=== PATIENT | female | born 1985 | race Caucasian/White ===

== ENCOUNTER 2018-05-04 20:48 | Emergency (ER) | payer SELFPAY ==
[~2018-05-04] VITALS: Ht 157.5 cm; Wt 84.1 kg
[2018-05-04 21:01] VITALS: Ht 157.5 cm; Wt 84.1 kg
[2018-05-04] MEDS ORDERED: MINIPRESS 5 MG C5 MG (21:02)
[2018-05-04] MEDS ORDERED: TEGRETOL XR100 MG PO (21:02)
[2018-05-04] MEDS ORDERED: SEROQUEL XR400 M1 PO (21:02)
[2018-05-04] MEDS ORDERED: LAMICTAL XR200 MG PO (21:02)
[2018-05-04] MEDS ORDERED: ALBUTEROL2.5 MG/3 M (21:03)
[2018-05-04] MEDS ORDERED: VENTOLIN HFA18 GM (21:03)
[2018-05-04] MEDS ORDERED: SINGULAIR10 MG PO (21:03)
[2018-05-04] MEDS ORDERED: TOPROL XL50 MG (21:03)
[2018-05-04] MEDS ORDERED: PHENERGAN DM SYR5 ML PO (22:17)
[2018-05-04] MEDS ORDERED: MEDROL DOSE PACK4 MG PO (22:17)
[2018-05-04 23:15] VITALS: BP 111/50
== END 2018-05-04 23:08 | disposition home or self-care (01) ==
LOC: D.ER 20:48
DX: J40 Bronchitis, not specified as acute or chronic (principal); J06.9 Acute upper respiratory infection, unspecified; R09.89 Other specified symptoms and signs involving the circulatory and respiratory systems; F17.200 Nicotine dependence, unspecified, uncomplicated

== ENCOUNTER 2019-08-24 22:29 | Emergency (ER) | payer SELFPAY ==
[~2019-08-24] VITALS: Ht 157.5 cm; Wt 100.0 kg
[~2019-08-24 22:29] MED LIST: ALBUTEROL2.5 MG/3 M; LAMICTAL XR200 MG PO; MEDROL DOSE PACK4 MG PO; MINIPRESS 5 MG C5 MG; PHENERGAN DM SYR5 ML PO; SEROQUEL XR400 M1 PO; SINGULAIR10 MG PO; TEGRETOL XR100 MG PO; TOPROL XL50 MG; VENTOLIN HFA18 GM
[2019-08-24 22:50] VITALS: BP 115/67; Ht 157.5 cm; Wt 100.0 kg
[2019-08-24] MEDS ORDERED: DURAFLU 325-201 EACH PO (23:52)
[2019-08-24] MEDS ORDERED: TAMIFLU75 MG PO (23:52)
== END 2019-08-25 00:25 | disposition home or self-care (01) ==
LOC: D.ER 22:29
DX: J10.1 Influenza due to other identified influenza virus with other respiratory manifestations (principal); Z72.0 Tobacco use; J45.909 Unspecified asthma, uncomplicated

== ENCOUNTER 2020-10-06 06:30 | Day surgery (SDC) | payer BC ==
[2020-10-03 11:23] LABS: BASOPHILS 0 % (0-2); EOSINOPHILS 0 % (0-7); HEMATOCRIT 39.7 % (36.0-48.0); HEMOGLOBIN 13.4 g/dL (12-16); IMMATURE GRANULOCYTES 0.4 % (0-5); LYMPHOCYTE ABS# 2.04 10x3/uL (1.18-3.74); LYMPHOCYTES 38.1 % (15-50); MCH 31.2 pg (26.0-34.0); MCHC 33.8 g/dL (31.0-37.0); MCV 92.3 fL (80.0-100.0); MEAN PLATELET VOLUME 9.6 fL (7.4-10.4); MONOCYTES 5.4 % (2-11); NEUTROPHILS 56.1 % (40-80); PLATELET COUNT 286 10x3/uL (130-400); RDW 12.8 % (11.5-14.5); WBC 5.4 10x3/uL (4.8-10.8)
[2020-10-03 11:39] LABS: ANION GAP 11.1 mmol/L (8-16); CALCIUM 8.6 mg/dL (8.5-10.1); CARBON DIOXIDE 25.6 mmol/L (21.0-32.0); CREATININE - SERUM 1.1 mg/dL (0.6-1.3); POTASSIUM - SERUM 3.7 mmol/L (3.5-5.1)
[~2020-10-06] VITALS: Ht 157.5 cm; Wt 98.9 kg
[~2020-10-06 06:30] MED LIST changes: +CELEXA20 MG; +DEPAKOTE500 MG; +DURAFLU 325-201 EACH PO; +KEFLEX500 MG PO; +TAMIFLU75 MG PO; +VOLTAREN75 MG PO
[2020-10-06 07:53] VITALS: BP 98/61; Ht 157.5 cm; Wt 98.9 kg
--- NOTE | 2020-10-06 12:26 | NUR ---
OPA IN AIRWAY ON ADMIT
--- NOTE | 2020-10-06 12:32 | NUR ---
SCOPE PATCH BEHIND RT EAR ON ADMIT
--- NOTE | 2020-10-06 14:39 | NUR ---
1430 PT PAIN LEVEL IS A 6 OUT OF 10 AND REQUESTING PAIN MEDICATION.
--- NOTE | 2020-10-06 16:32 | NUR ---
1535 PT STATES HER PAIN LEVEL IS A 2 OUT OF 10 AFTER TAKING PERCOCET EARLIER. IV DC'D. CATHETER TIP INTACT. NO BLEEDING AT SITE. COBAN DRESSING APPLIED. 1550 WITH ASSISTANCE PT IS DRESSED AND READY TO GO HOME. DISCHARGE INSTRUCTIONS REVIEWED WITH PT WHO VOICES UNDERSTANDING OF THESE INSTRUCTIONS.
--- NOTE | 2020-10-12 12:54 | OP ---
PATIENT NAME: KRIS ROBERSON MEDICAL RECORD: [id number] :81 LOCATION:D.OPS ADMISSION DATE: SURGEON: FUAD ARCE DO DATE OF OPERATION: 10/06/2020 PREOPERATIVE DIAGNOSES: Pelvic pain, left ovarian cyst. POSTOPERATIVE DIAGNOSES: Pelvic pain, left ovarian cyst with dense adhesions and bowel adhesions to ovary. PRIMARY SURGEON: Fuad Arce DO. CNC MANAGER SURGEON: Dr. Dumont. ANESTHESIA: General endotracheal tube intubation. PROCEDURE: Laparoscopic left partial oophorectomy. FINDINGS: Adhesions to anterior abdominal wall. Ovary densely adhered to bowel. SPECIMEN: Portion of the left ovary and fallopian tube. BLOOD LOSS: 50 mL. INTRAVENOUS FLUIDS: 1300 mL. URINE OUTPUT: 300 mL of clear yellow urine. INFECTION PROPHYLAXIS: 2 g Ancef. COMPLICATIONS: None. Risks and benefits were reviewed with the patient in the office with extenseive counseling. The patient expressed understanding and desired to proceed with surgery. DESCRIPTION OF PROCEDURE: The patient was taken to the operating room where general anesthesia was administered and found to be adequate. She was prepped and draped in normal sterile fashion in supine position. Marcaine was injected into subumbilical area and at all port sites prior to all trocar placement. Incision made under umbilicus and a 5-mm port placed with direct entry. Initial inflation of gas cause some to go into subcutatneous layer, removed and replaced and air removed as much as possible. Pneumoperitoneum created via CO2 gas. Adhesions to anterior abdominal wall were noted. So 2 other ports were placed in the left lower quadrant and right lower quadrant, 5 mm in the right lower quadrant, 10 mm in the left lower quadrant. Adhesions were taken down with harmonic with good hemostasis. No bowel noted in the adhesed omental tissue. Attention was then turned to the left side. Left ovary was found with dense adhesions to bowel. Fimbriae are noted to be free. So removed with harmonic with combination of sharp and blunt dissection and OPERATIVE REPORT [id number] KRIS ROBERSON coagulation with good hemostasis. Cyst drained and portion of ovary that was not attached to bowel removed with harmonic, attention to avoid bowel injury which would require invasive surgery Ovary removed via Endobag. Endoclip placed on blood supply to the ovary to also help with hemostasis. Hemostasis was adequate. Abdomen was thoroughly lavaged and no active bleeding noted. Penny was placed and hemostasis was again adequate. Ports then removed. Incisions closed with 3-0 Monocryl and Dermabond. The patient taken to the recovery room in stable condition. TRANSINT:[id number] Voice Confirmation ID: [id number] DOCUMENT ID: [id number] FUAD ARCE DO at 1254 CC: [id number] DICTATION DATE: 10/12/20 0654 BUSINESS SOLUTION ANALYST: 10/12/20 1031 [facility] 10/06/20 [id number] [place] [address]
== END 2020-10-06 15:50 | disposition home or self-care (01) ==
LOC: D.OPS 06:30
PROVIDERS: Anesthesiology; ATTEND Obstetrics & Gynecology
DX: R10.2 Pelvic and perineal pain (principal); N83.202 Unspecified ovarian cyst, left side; E89.41 Symptomatic postprocedural ovarian failure

== ENCOUNTER 2020-10-25 09:59 | Emergency (ER) | payer BC ==
[~2020-10-25] VITALS: Ht 157.5 cm; Wt 97.7 kg
[2020-10-25 10:03] VITALS: Ht 157.5 cm; Wt 97.7 kg
[2020-10-25] MEDS ORDERED: BACTRIM DS TAB1 EAC1 PO (10:07)
[2020-10-25 11:35] LABS: ANION GAP 13.4 mmol/L (8-16); CALCIUM 8.4 mg/dL (8.5-10.1); CARBON DIOXIDE 24.2 mmol/L (21.0-32.0); CREATININE - SERUM 1.2 mg/dL (0.6-1.3); POTASSIUM - SERUM 4.6 mmol/L (3.5-5.1)
[2020-10-25 11:40] LABS: BASOPHILS 0 % (0-2); EOSINOPHILS 0 % (0-7); HEMATOCRIT 36.6 % (36.0-48.0); HEMOGLOBIN 12.1 g/dL (12-16); IMMATURE GRANULOCYTES 0.8 % (0-5); LYMPHOCYTE ABS# 1.82 10x3/uL (1.18-3.74); LYMPHOCYTES 34.1 % (15-50); MCH 31.1 pg (26.0-34.0); MCHC 33.1 g/dL (31.0-37.0); MCV 94.1 fL (80.0-100.0); MEAN PLATELET VOLUME 10.1 fL (7.4-10.4); MONOCYTES 7.5 % (2-11); NEUTROPHIL ABS# 3.07 10x3/uL (1.56-6.13); NEUTROPHILS 57.6 % (40-80); PLATELET COUNT 261 10x3/uL (130-400); RBC 3.89 10x6/uL (4.00-5.40); RDW 13.5 % (11.5-14.5); WBC 5.3 10x3/uL (4.8-10.8)
[2020-10-25 11:41] LABS: ALBUMIN 3.1 g/dL (3.4-5.0); BILIRUBIN - TOTAL 0.09 mg/dL (0.2-1.3); PROTEIN - SERUM 6.2 g/dL (6.4-8.2)
[2020-10-25 12:28] VITALS: BP 114/50
== END 2020-10-25 12:28 | disposition home or self-care (01) ==
LOC: D.ER 09:59
PROVIDERS: Family Medicine
DX: R10.9 Unspecified abdominal pain (principal)

== ENCOUNTER 2020-11-15 14:07 | Inpatient (IN) | payer BC ==
[~2020-11-15] VITALS: Ht 157.5 cm; Wt 101.6 kg
[~2020-11-15 14:07] MED LIST changes: +BACTRIM DS TAB1 EAC1 PO; -CELEXA20 MG; +CELEXA20 MG PO
--- NOTE | 2020-11-15 14:20 | NUR ---
RECEIVED PT VIA WHEELCHAIR FROM ADMISSIONS DEPT TO ROOM 1273. PT TO ROOM. INSTRUCTED TO GOWN AND COLLECT URINE SPECIMEN.
--- NOTE | 2020-11-15 14:30 | NUR ---
DR GARCIA'S OFFICE NURSE NOTIFIED OF ORDERED PHYSICIAN CONSULT.
[2020-11-15 14:53] VITALS: BP 110/56; BMI 41.0
--- NOTE | 2020-11-15 15:09 | NUR ---
LAB HERE TO OBTAIN BLOOD CULTURES X 2.
--- NOTE | 2020-11-15 15:10 | NUR ---
WILBER WITH DR GARCIA'S OFFICE VISITS WITH PT.
[2020-11-15] MEDS ORDERED: MOBIC7.5 MG PO (15:17)
[2020-11-15] MEDS ORDERED: CEPHALEXIN500 M1 PO (15:19)
[2020-11-15] MEDS ORDERED: TRELEGY ELLIPT1 EACH INH (15:21)
[2020-11-15 15:36] LABS: ANION GAP 14.5 mmol/L (8-16); CALCIUM 8.9 mg/dL (8.5-10.1); CARBON DIOXIDE 24.7 mmol/L (21.0-32.0); POTASSIUM - SERUM 4.2 mmol/L (3.5-5.1)
[2020-11-15 15:37] LABS: BASOPHILS 0 % (0-2); EOSINOPHILS 0.1 % (0-7); HEMATOCRIT 39.2 % (36.0-48.0); HEMOGLOBIN 12.9 g/dL (12-16); IMMATURE GRANULOCYTES 0.1 % (0-5); LYMPHOCYTE ABS# 2.56 10x3/uL (1.18-3.74); LYMPHOCYTES 29.4 % (15-50); MCH 31.9 pg (26.0-34.0); MCHC 32.9 g/dL (31.0-37.0); MEAN PLATELET VOLUME 10.9 fL (7.4-10.4); MONOCYTES 5.8 % (2-11); NEUTROPHIL ABS# 5.63 10x3/uL (1.56-6.13); NEUTROPHILS 64.6 % (40-80); PLATELET COUNT 289 10x3/uL (130-400); RBC 4.04 10x6/uL (4.00-5.40); RDW 12.8 % (11.5-14.5); WBC 8.7 10x3/uL (4.8-10.8)
[2020-11-15 15:42] LABS: ALBUMIN 3.4 g/dL (3.4-5.0); BILIRUBIN - TOTAL 0.29 mg/dL (0.2-1.3); PROTEIN - SERUM 6.9 g/dL (6.4-8.2)
--- NOTE | 2020-11-15 16:01 | NUR ---
CT STAFF HERE. PT TO CT DEPT VIA WHEELCHAIR PER CT STAFF.
--- NOTE | 2020-11-15 16:15 | NUR ---
PT BACK TO ROOM VIA WHEELCHAIR PER CT STAFF.
--- NOTE | 2020-11-15 17:05 | NUR ---
PT LYING IN SEMI-RAINES'S POSITION IN BED. STATES PAIN "2" ON 0-10 PAIN SCALE. STATES MEDICATION HELPING TO RELIEVE PAIN.
--- NOTE | 2020-11-15 17:20 | NUR ---
SCDS ON BLE. PUMP ON. PT INSTRUCTED ON PURPOSE. PT ALSO INSTRUCTED ON INCENTIVE SPIROMETER. VERBLAIZES UNDERSTANDING.
--- NOTE | 2020-11-15 17:30 | NUR ---
CT RESULTS CALLED TO DR MAHAN. STATES WILL CONTACT DR GARCIA'S CUTTER MACHINE FOR SUGGESTIONS/ORDERS.
--- NOTE | 2020-11-15 17:57 | NUR ---
DR MAHAN CALLS. STATES PT MAY EAT AND DR GARCIA ANP WILL SEE PT IN AM.
[2020-11-15 19:10] VITALS: BP 109/56
--- NOTE | 2020-11-15 19:30 | NUR ---
PT A,A,OX4. VSS. SEE FULL ASSESSMENT PER FLOWSHEET. PIV IN RT HAND INFUSING LR AT 125 ML/HR. INCISION SITE ON LEFT SIDE MIDDLE ABDOMEN. BANDAGED REMOVED WITH HALF DOLLAR SIZE LIGHT RED BLOOD AND PUS NOTED. NEW STERILE NON ADHESIVE BANDAGE APPLIED TO INCISION SITE. REDNESS NOTED ON AND AROUND INCISION SITE WRAPPING AROUND SIDE AND MIDDLE OF ABDOMEN. PT RATES PAIN 6/1O AT INCISION SITE. SRUP X2, CALL LIGHT WITHIN REACH.
--- NOTE | 2020-11-15 19:54 | NUR ---
TYLENOL ADMINISTERED PER EMAR, ICE WATER PROVIDED.
--- NOTE | 2020-11-15 20:26 | NUR ---
PHARMACY CALLED LABOR UNIT TO VERIFY DOSE OF SEROQUEL. DR MAHAN AND PT BOTH VERIFY THAT SHE TAKES 800MG PO QHS. INFORMATION RELAYED BACK TO PHARMACY.
--- NOTE | 2020-11-15 22:27 | NUR ---
MEDICATION ADMINISTERED PER EMAR. COKE AND CRACKERS PROVIDED. PT DENIES OTHER NEEDS AT THIS TIME.
[2020-11-16 00:19] VITALS: BP 93/54
--- NOTE | 2020-11-16 00:30 | NUR ---
MEDICATION ADMINISTERED PER EMAR. VSS. PT RESTING, DENIES NEEDS AT THIS TIME.
--- NOTE | 2020-11-16 01:39 | NUR ---
NEW BAG BENITO BUSTILLO. PT DENIES NEEDS AT THIS TIME.
--- NOTE | 2020-11-16 03:56 | NUR ---
PT RESTING WITH EYES CLOSED, BREATHING NON LABORED.
--- NOTE | 2020-11-16 06:21 | NUR ---
ANTIBIOTICS INFUSING PER MD ORDERS, SEE EMAR
--- NOTE | 2020-11-16 06:38 | NUR ---
PATIENT UP TO BATHROOM, VOIDED WITHOUT DIFFICULTY AND BACK TO BED. PAIN MEDICATION ADMINISTERED PER MD ORDERS, SEE EMAR.
--- NOTE | 2020-11-16 07:21 | NUR ---
BEDSIDE REPORT GIVEN TO ONCOMING SHIFT.
[2020-11-16 07:52] VITALS: BP 96/53
--- NOTE | 2020-11-16 07:52 | NUR ---
RECEIVED PT IN SEMI-RAINES'S POSITION IN BED. PT WAKES UPON ENTERING ROOM. VSS. HRRR WITHOUT AUDIBLE MURMUR. BBS CLEAR. BS X 4. ABDOMEN SOFT/NON-DISTENDED. DRESSING TO LEFT SIDE OF ABDOMEN WITHOUT DRAINAGE NOTED. REDNESS NOTED AROUND DRESSING. NEG HOMANS' SIGN. PPP. NO EDEMA NOTED TO BLE. PIV TO RIGHT HAND. PIV OF LR AT 125 ML/HR. VANCOMYCIN CURRENTLY INFUSING. SITE CLEAR. SCDS NOTED OFF AT THIS TIME. PT ENCOURAGED TO KEEP SCD'S ON. PT STATES C/O ABDOMINAL PAIN OF "4" ON 0-10 PAIN SCALE. STATES RECEIVED PAIN MED THIS AM AND IS HELPING WITH PAIN. PT DENIES NEEDS OR C/O. SR UP X 2. CALL LIGHT IN REACH.
[2020-11-16 08:01] LABS: CREATININE - SERUM 0.9 mg/dL (0.6-1.3)
--- NOTE | 2020-11-16 08:52 | NUR ---
DR MAHAN CALLS. PT STATUS UPDATE GIVEN. STATES WILL CALL SURGERY MANAGER PRICING AND PUT IN ORDERS.
[2020-11-16 09:20] LABS: ALBUMIN 2.7 g/dL (3.4-5.0); ALKALINE PHOSPHATASE 65 U/L (30-120); ALT (SGPT) 11 U/L (10-68); BILIRUBIN - TOTAL 0.28 mg/dL (0.2-1.3); CALC OSMOLALITY 280 mosm/kg (275-300); CALCIUM 7.9 mg/dL (8.5-10.1); CARBON DIOXIDE 24.6 mmol/L (21.0-32.0); CHLORIDE - SERUM 106 mmol/L (98-107); GLUCOSE 76 mg/dL (74-106); PROTEIN - SERUM 5.5 g/dL (6.4-8.2); SODIUM 141 mmol/L (136-145); UREA NITROGEN 16 mg/dL (7-18)
[2020-11-16 09:41] LABS: BASOPHILS 0 % (0-2); EOSINOPHILS 0.3 % (0-7); HEMOGLOBIN 11.4 g/dL (12-16); IMMATURE GRANULOCYTES 0.1 % (0-5); LYMPHOCYTE ABS# 2.31 10x3/uL (1.18-3.74); MCH 31.6 pg (26.0-34.0); MCHC 32.6 g/dL (31.0-37.0); MEAN PLATELET VOLUME 10.9 fL (7.4-10.4); MONOCYTES 5.8 % (2-11); NEUTROPHIL ABS# 4.47 10x3/uL (1.56-6.13); NEUTROPHILS 61.8 % (40-80); PLATELET COUNT 250 10x3/uL (130-400); RBC 3.61 10x6/uL (4.00-5.40); RDW 13.2 % (11.5-14.5); WBC 7.2 10x3/uL (4.8-10.8)
--- NOTE | 2020-11-16 09:55 | NUR ---
DR MAHAN ON UNIT. VISITS WITH PT AND CASE MANAGEMENT-JADE NICKERSON RN.
--- NOTE | 2020-11-16 09:59 | NUR ---
JADE NICKERSON RN, CASE MANAGEMENT VISITS WITH PT.
--- NOTE | 2020-11-16 11:11 | NUR ---
DR MAHAN CALLS. STATES SURGERY FLAG DECORATOR ORDERED PELVIC CT SCAN FOR TODAY. ORDER RECEIVED TO SWITCH PIV FLUID TO D5LR AT 125 ML/HR X 1 1000 ML BAG.
[2020-11-16 12:17] VITALS: BP 102/50
--- NOTE | 2020-11-16 12:17 | NUR ---
VSS. PT LYING SUPINE IN BED. PT DENIES C/O. ASKS ABOUT TIME ON CT SCAN. WILL CALL DEPT. CT/MEDICAL IMAGING DEPT CALLED. WILL HAVE CT STAFF RETURN CALL WITH ESTIMATED TIME.
--- NOTE | 2020-11-16 12:40 | NUR ---
CT STAFF TO ROOM. PT TRANSFERED VIA WHEELCHAIR TO CT DEPT PER CT STAFF.
--- NOTE | 2020-11-16 14:09 | NUR ---
DR MAHAN NOTIFIED OF CT OF PELVIS REPORT. STATES HAS VIEWED AND ATTEMPTED TO CONTACT SURGERY ANP AND AWAITING RETURN CALL.
--- NOTE | 2020-11-16 14:44 | MORECARE ---
CASE MANAGEMENT DISCHARGE SUMMARY PATIENT: KRIS ROBERSON UNIT: [id number] ADM DATE: 11/15/20 AGE: 35 : 83 SEX: F [facility] AUTHOR: MURALI,DOC PHYSICIAN: REFERRING PHYSICIAN: FUAD MAHAN DO DATE OF SERVICE: 11/16/20 Case Management Discharge Planning Summary DCP REVIEW SUMMARY ANTICIPATED D/C DATE: EXPECTED LOS : CASE STATUS: DCP Initiated INITIAL REVIEW: 11/16/2020 INITIAL REVIEWER: Avelina Betancourt FINAL DISCHARGE DISPOSITION: : FINAL REVIEWER: FINAL REVIEW DATE: DCP Focus Questions & Answers QUESTION: ANSWER : PATIENT: KRIS ROBERSON ENCOUNTER: [id number] MEDICAL RECORD#: [id number] ADMISSION DATE: 11/15/2020 DISCHARGE DATE: ATTENDING MD: MICHAELLE: AGE: 35 MARITAL STATUS: S DC PLAN ID: [id number] FACILITY: [facility] PRINTED ON: 11/16/20 14:44 CT All edits/amendments must be made on the electronic document DICTATION DATE: 11/16/201443 IN STORE MARKETING REPRESENTATIVE: ORQUIDEA 11/16/20 144 RPT#: [id number] DC DATE: STATUS: ADM IN [facility] [address] [place] [address] END OF REPORT
--- NOTE | 2020-11-16 14:57 | MORECARE ---
CASE MANAGEMENT DISCHARGE SUMMARY PATIENT: KRIS ROBERSON UNIT: [id number] ADM DATE: 11/15/20 AGE: 35 : 83 SEX: F ROOM/BED: D.1273 AUTHOR: PERLA CARRION PHYSICIAN: REFERRING PHYSICIAN: FUAD MAHAN DO DATE OF SERVICE: 11/16/20 Case Management Discharge Planning Summary DCP REVIEW SUMMARY ANTICIPATED D/C DATE: EXPECTED LOS : CASE STATUS: DCP Initiated INITIAL REVIEW: 11/16/2020 INITIAL REVIEWER: Avelina Betancourt FINAL DISCHARGE DISPOSITION: : FINAL REVIEWER: FINAL REVIEW DATE: DCP Focus Questions & Answers DCP Evaluation QUESTION: ANSWER Patient and/or caregiver agree upon recommended discharge plan? : Yes Patient's current cognitive status: : *Oriented to person, place, situation, time and present Patient's ability to cope with chronic illness : d. No chronic illness Patient gives permission to discuss discharge plans with: (name, relationship and number) : Kris Roberson - life partner - [phone] Does the patient have the ability to pay for or attain post discharge needs / services? : Yes Functional screen assessment: : Basic needs can adequately be met by self Physical Status: : Independent with ADL's Equipment needed for post hospitalization: : Other Is there a likelihood that the patient will require additional services to return to the preadmission environment? : No Living Arrangements: : Home with Spouse/Significant Other Other Equipment comments: : Unknown at this time Results of this evaluation have been discussed with: : Significant other Results of this evaluation have been discussed with: : Patient Patient with capacity for self-care or can be cared for in same environment as prior to hospitalization? : Yes Baseline cognitive status: : *Oriented to person, place, situation, time and present Medication Management: : Patient states can afford medications Planned post hospital services available for patient? : Yes Does Patient have transportation to get home and to follow-up medical appointments when discharged from the hospital? : Yes Would patient like to participate in any Care Coordination programs (if applicable): : Not applicable Equipment in use: : None Abuse/Neglect: : None Resources / Services in place: : None DCP Re-evaluation QUESTION: ANSWER Would patient like to participate in any Care Coordination programs (if applicable): : Not applicable PATIENT: KRIS ROBERSON ENCOUNTER: [id number] MEDICAL RECORD#: [id number] ADMISSION DATE: 11/15/2020 DISCHARGE DATE: ATTENDING MD: MICHAELLE: AGE: 35 MARITAL STATUS: S DC PLAN ID: [id number] FACILITY: [facility] PRINTED ON: 11/16/20 14:57 CT All edits/amendments must be made on the electronic document DICTATION DATE: 11/16/201456 AUTOMOBILE LEASING SUPERVISOR: ORQUIDEA 11/16/201456 RPT#: [id number] DC DATE: STATUS: ADM IN [facility] [address] [place] [address] END OF REPORT
--- NOTE | 2020-11-16 15:27 | NUR ---
PT SITTING UP IN BED. TALKING ON PHONE. ASKING ABOUT POC. WILL NOTIFY DR MAHAN OF PT REQUEST.
--- NOTE | 2020-11-16 15:33 | MORECARE ---
CASE MANAGEMENT DISCHARGE SUMMARY PATIENT: KRIS ROBERSON UNIT: [id number] ADM DATE: 11/15/20 AGE: 35 : 83 SEX: F ROOM/BED: D.1273 AUTHOR: MURALI,DOC PHYSICIAN: REFERRING PHYSICIAN: FUAD MAHAN DO DATE OF SERVICE: 11/16/20 Case Management Discharge Planning Summary COMMENTS ENTERED DATE: 11/16/20 14:48 CT COMMENT TYPE: Discharge Planning REVIEWER: Avelina Betancourt DC PLAN: Home with Life partner ANTICIPATED DC NEEDS: May need home health if extensive dressing change or wound vac CM met with patient to complete initial dc planning assessment. CM educated patient on the CM role and verbal consent given by patient to complete assessment. CM verified patient's address, phone number, and emergency contact phone numbers. Patient lives at home with her life partner, Kris Roberson (same first and last name as patient). At discharge patient plans to return and feels this is a safe discharge. CM discussed availability of home health, rehab services, and medical equipment. Patient denied known discharge needs at this time. Transportation provider at discharge will be her life partner. I did explain to them both that if she has surgery and she has an extensive dressing change or drains or a wound vac that she may need home health. Her partner states at this time she is doing dressing changes and can continue this if possible. I gave them a list of the home health services in the area and she will review. She asks that I return after she has procedure to know if she has any needs. Her PCP is Mary Oquendo at [facility]. CM will continue to follow and will assist as needed with dc plans/needs. DCP REVIEW SUMMARY ANTICIPATED D/C DATE: EXPECTED LOS : CASE STATUS: DCP Initiated INITIAL REVIEW: 11/16/2020 INITIAL REVIEWER: Avelina Betancourt FINAL DISCHARGE DISPOSITION: : FINAL REVIEWER: FINAL REVIEW DATE: DCP Focus Questions & Answers DCP Evaluation QUESTION: ANSWER Patient and/or caregiver agree upon recommended discharge plan? : Yes Patient's current cognitive status: : *Oriented to person, place, situation, time and present Patient's ability to cope with chronic illness : d. No chronic illness Patient gives permission to discuss discharge plans with: (name, relationship and number) : Kris Roberson - life partner - [phone] Does the patient have the ability to pay for or attain post discharge needs / services? : Yes Functional screen assessment: : Basic needs can adequately be met by self Physical Status: : Independent with ADL's Equipment needed for post hospitalization: : Other Is there a likelihood that the patient will require additional services to return to the preadmission environment? : No Living Arrangements: : Home with Spouse/Significant Other Other Equipment comments: : Unknown at this time Results of this evaluation have been discussed with: : Significant other Results of this evaluation have been discussed with: : Patient Patient with capacity for self-care or can be cared for in same environment as prior to hospitalization? : Yes Baseline cognitive status: : *Oriented to person, place, situation, time and present Medication Management: : Patient states can afford medications Planned post hospital services available for patient? : Yes Does Patient have transportation to get home and to follow-up medical appointments when discharged from the hospital? : Yes Would patient like to participate in any Care Coordination programs (if applicable): : Not applicable Equipment in use: : None Abuse/Neglect: : None Resources / Services in place: : None DCP Re-evaluation QUESTION: ANSWER Would patient like to participate in any Care Coordination programs (if applicable): : Not applicable PATIENT: KRIS ROBERSON ENCOUNTER: [id number] MEDICAL RECORD#: [id number] ADMISSION DATE: 11/15/2020 DISCHARGE DATE: ATTENDING MD: MICHAELLE: AGE: 35 MARITAL STATUS: S DC PLAN ID: [id number] FACILITY: [facility] PRINTED ON: 11/16/20 15:33 CT All edits/amendments must be made on the electronic document DICTATION DATE: 11/16/201532 [employer] DEPUTY SHERIFF: ORQUIDEA 11/16/20 153 RPT#: [id number] DC DATE: STATUS: ADM IN [facility] [address] [place] [address] END OF REPORT
--- NOTE | 2020-11-16 16:00 | NUR ---
DR MAHAN CALLS. NOTIFIED OF PT REQUEST FOR POC. STATES WILL COME SEE PT.
--- NOTE | 2020-11-16 16:17 | NUR ---
TRAMADOL GIVEN PO ORDERED FOR PT C/O PAIN OF "10" ON 0-10 PAIN SCALE. PT INSTRUCTED ON MED. VERBALIZES UNDERSTANDING.
--- NOTE | 2020-11-16 16:30 | NUR ---
DR MAHAN VISITS WITH PT. DISCUSSES POC WITH PT AND SO.
--- NOTE | 2020-11-16 17:05 | NUR ---
PT SITTING UP IN BED. CONSUMING REG DIET. TOLERATING WELL.
--- NOTE | 2020-11-16 17:15 | NUR ---
PIV CONVERTED TO SALINE LOCK. PT UP TO SHOWER. BED LINENS CHANGED.
--- NOTE | 2020-11-16 18:58 | NUR ---
BEDSIDE SHIFT REPORT COMPLETED AT THIS TIME TO ASSUME PT CARE.
[2020-11-16 19:15] VITALS: BP 125/78
--- NOTE | 2020-11-16 19:25 | NUR ---
ADMINISTERED 650MG TYLENOL PER PT REQUEST AND MD ORDERS, SEE EMAR
--- NOTE | 2020-11-16 22:02 | NUR ---
NEW BAG OF LR HUNG AND INFUSING VIA ALARIS PUMP PER MD ORDERS, TRAMADOL ADMINISTERED PER PT REQUEST, SEE EMAR
--- NOTE | 2020-11-16 23:59 | NUR ---
ANTIBIOTICS HUNG AND INFUSING VIA ALARIS PUMP PER MD ORDERS.
--- NOTE | 2020-11-17 01:30 | NUR ---
PATIENT RESTING QUIETLY WITH EYES CLOSED, NO DISTRESS NOTED. WILL CONTINUE TO MONITOR.
--- NOTE | 2020-11-17 03:30 | NUR ---
PATIENT RESTING WITH EYES CLOSED, RESPIRATIONS EVEN AND NON LABORED. NO DISTRESS NOTED. WILL CONTINUE TO MONITOR.
--- NOTE | 2020-11-17 05:09 | NUR ---
ANTIBIOTICS INFUSING VIA ALARIS PUMP PER MD ORDERS. PAIN MEDICATION ADMINISTERED PER PT REQUEST. NO FURTHER NEEDS IDENTIFIED. WILL CONTINUE TO MONITOR.
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
[2020-11-17 08:17] VITALS: BP 106/53
--- NOTE | 2020-11-17 08:42 | NUR ---
PAIN REASSESSMENT COMPLETED. RESTING WITH EYES CLOSED IN SEMI-FOWLERS POSITION. RESP REGULAR AND UNLABORED, NO S/S OF DISTRESS NOTED. BED IN LOW POSITION WITH SRUP X2. CALL LIGHT AND PHONE WITHIN REACH.
[2020-11-17 12:47] VITALS: Ht 157.5 cm; Wt 101.6 kg
--- NOTE | 2020-11-17 15:29 | NUR ---
DR. MAHAN AT BEDSIDE. POC DISCUSSED WITH PT, VERBALIZES UNDERSTANDING. WOUND PACKED PER MD. V/O REC'D DURING PROCEDURE FOR IV PAIN MEDS PER ORDERS AND GIVEN WITH C/O PAIN 04/14. CM CONSULT FOR HH ARRANGEMENTS DISCUSSED AND PT AGREEABLE.
--- NOTE | 2020-11-17 15:49 | NUR ---
PAIN 2/10. DENIES ADDITIONAL NEEDS.
--- NOTE | 2020-11-17 16:01 | NUR ---
300 MLS EMESIS NOTED IN TRASH CAN. REPORTED TO DR. MAHAN. ORDERS REC'D FOR ZOFRAN AND MED GIVEN PER ORDER AND REQUEST.
--- NOTE | 2020-11-17 19:09 | NUR ---
ANTIBIOTICS HUNG AT THIS TIME INFUSING VIA ALARIS PUMP. SEE EMAR.
--- NOTE | 2020-11-17 19:10 | NUR ---
REPORT RECEIVED FROM ALVARO DIOP RN. PT IS MOVING TO ROOM 2226 FOR CONTINUED CARE.
--- NOTE | 2020-11-17 20:40 | NUR ---
ANTIBIOTICS CONPLETED, NO REACTION NOTED. PRIMARY FLUIDS INFUSING PER MD ORDERS.
--- NOTE | 2020-11-17 21:24 | NUR ---
REPORT TO NISHA MIKE RN TO ASSUME PT CARE.
--- NOTE | 2020-11-17 21:35 | NUR ---
PATIENT IN STABLE CONDITION, IN WHEELCHAIR AND ESCORTED TO ROOM 2226 WITH HOSPITAL DRIVER EXAMINER.
--- NOTE | 2020-11-17 21:45 | NUR ---
RECIEVED TO ROOM ALERT AND ORIENTIATED, C/O PAIN TO RIGHT HAND QWHER IV IS REDNESS AND SWELLING NOTED DC'D, RESITED TO LEFT UPPER ARM FLUIDS STARTED ORDERED, SEE SHIFT ASSESSMENT, CALL LIGHT IN REACH
[2020-11-18 04:00] VITALS: BP 102/60
[2020-11-18 07:36] LABS: BASOPHILS 0 % (0-2); EOSINOPHILS 0.4 % (0-7); HEMOGLOBIN 10.9 g/dL (12-16); IMMATURE GRANULOCYTES 0.2 % (0-5); LYMPHOCYTE ABS# 1.64 10x3/uL (1.18-3.74); LYMPHOCYTES 34.2 % (15-50); MCH 31.2 pg (26.0-34.0); MCHC 32.1 g/dL (31.0-37.0); MCV 97.4 fL (80.0-100.0); MONOCYTES 7.1 % (2-11); NEUTROPHIL ABS# 2.78 10x3/uL (1.56-6.13); NEUTROPHILS 58.1 % (40-80); PLATELET COUNT 258 10x3/uL (130-400); RBC 3.49 10x6/uL (4.00-5.40); RDW 12.9 % (11.5-14.5)
[2020-11-18 07:46] LABS: WBC 4.8 10x3/uL (4.8-10.8)
[2020-11-18 08:24] VITALS: BP 124/72
--- NOTE | 2020-11-18 10:18 | MORECARE ---
CASE MANAGEMENT DISCHARGE SUMMARY PATIENT: KRIS ROBERSON UNIT: [id number] ADM DATE: 11/15/20 AGE: 35 : 81 SEX: F ROOM/BED: D.2226 AUTHOR: MURALI,DOC PHYSICIAN: REFERRING PHYSICIAN: FUAD MAHAN DO DATE OF SERVICE: 11/18/20 Case Management Discharge Planning Summary COMMENTS ENTERED DATE: 11/16/20 14:48 CT COMMENT TYPE: Discharge Planning REVIEWER: Avelina Betancourt DC PLAN: Home with Life partner ANTICIPATED DC NEEDS: May need home health if extensive dressing change or wound vac CM met with patient to complete initial dc planning assessment. CM educated patient on the CM role and verbal consent given by patient to complete assessment. CM verified patient's address, phone number, and emergency contact phone numbers. Patient lives at home with her life partner, Kris Roberson (same first and last name as patient). At discharge patient plans to return and feels this is a safe discharge. CM discussed availability of home health, rehab services, and medical equipment. Patient denied known discharge needs at this time. Transportation provider at discharge will be her life partner. I did explain to them both that if she has surgery and she has an extensive dressing change or drains or a wound vac that she may need home health. Her partner states at this time she is doing dressing changes and can continue this if possible. I gave them a list of the home health services in the area and she will review. She asks that I return after she has procedure to know if she has any needs. Her PCP is Mary Oquendo at [facility]. CM will continue to follow and will assist as needed with dc plans/needs. DCP REVIEW SUMMARY ANTICIPATED D/C DATE: EXPECTED LOS : CASE STATUS: DCP Initiated INITIAL REVIEW: 11/16/2020 INITIAL REVIEWER: Avelina Betancourt FINAL DISCHARGE DISPOSITION: : FINAL REVIEWER: FINAL REVIEW DATE: DCP Focus Questions & Answers DCP Evaluation QUESTION: ANSWER Patient and/or caregiver agree upon recommended discharge plan? : Yes Patient's current cognitive status: : *Oriented to person, place, situation, time and present Patient's ability to cope with chronic illness : d. No chronic illness Patient gives permission to discuss discharge plans with: (name, relationship and number) : Kris Roberson - life partner - [phone] Does the patient have the ability to pay for or attain post discharge needs / services? : Yes Functional screen assessment: : Basic needs can adequately be met by self Physical Status: : Independent with ADL's Equipment needed for post hospitalization: : Other Is there a likelihood that the patient will require additional services to return to the preadmission environment? : No Living Arrangements: : Home with Spouse/Significant Other Other Equipment comments: : Unknown at this time Results of this evaluation have been discussed with: : Patient Results of this evaluation have been discussed with: : Significant other Patient with capacity for self-care or can be cared for in same environment as prior to hospitalization? : Yes Baseline cognitive status: : *Oriented to person, place, situation, time and present Medication Management: : Patient states can afford medications Planned post hospital services available for patient? : Yes Does Patient have transportation to get home and to follow-up medical appointments when discharged from the hospital? : Yes Would patient like to participate in any Care Coordination programs (if applicable): : Not applicable Equipment in use: : None Abuse/Neglect: : None Resources / Services in place: : None DCP Re-evaluation QUESTION: ANSWER Would patient like to participate in any Care Coordination programs (if applicable): : Not applicable PATIENT: KRIS ROBERSON ENCOUNTER: [id number] MEDICAL RECORD#: [id number] ADMISSION DATE: 11/15/2020 DISCHARGE DATE: ATTENDING MD: MICHAELLE: AGE: 35 MARITAL STATUS: S DC PLAN ID: [id number] FACILITY: [facility] PRINTED ON: 11/18/20 10:18 CT All edits/amendments must be made on the electronic document DICTATION DATE: 11/18/20 1018 BEVERAGE DISTILLER: ORQUIDEA 11/18/20 1018 RPT#: [id number] DC DATE: STATUS: ADM IN [facility] [address] [place] [address] END OF REPORT
[2020-11-18 12:57] VITALS: BP 155/64
--- NOTE | 2020-11-18 14:42 | MORECARE ---
CASE MANAGEMENT DISCHARGE SUMMARY PATIENT: KRIS ROBERSON UNIT: [id number] ADM DATE: 11/15/20 AGE: 35 : 81 SEX: F ROOM/BED: D.2226 AUTHOR: MURALI,DOC PHYSICIAN: REFERRING PHYSICIAN: FUAD MAHAN DO DATE OF SERVICE: 11/18/20 Case Management Discharge Planning Summary COMMENTS ENTERED DATE: 11/18/20 14:33 CT COMMENT TYPE: Discharge Planning REVIEWER: Mary Byers CM met with patient at bedside after obtaining verbal consent. CM discussed availability / needs of home health, REHAB and medical equipment. Patient will need home health for dressing changes and wound care. Choice letter signed for [facility], referral faxed to them. Waiting call back to see if they can start care tomorrow. Home health usually does not do daily dressing changes, patient may need to go to clinic on days home health can not change dressing. Patient plans to dc to home today, friend at bedside. CM to follow and assist as needed. ENTERED DATE: 11/16/20 14:48 CT COMMENT TYPE: Discharge Planning REVIEWER: Avelina Betancourt DC PLAN: Home with Life partner ANTICIPATED DC NEEDS: May need home health if extensive dressing change or wound vac CM met with patient to complete initial dc planning assessment. CM educated patient on the CM role and verbal consent given by patient to complete assessment. CM verified patient's address, phone number, and emergency contact phone numbers. Patient lives at home with her life partner, Kris Roberson (same first and last name as patient). At discharge patient plans to return and feels this is a safe discharge. CM discussed availability of home health, rehab services, and medical equipment. Patient denied known discharge needs at this time. Transportation provider at discharge will be her life partner. I did explain to them both that if she has surgery and she has an extensive dressing change or drains or a wound vac that she may need home health. Her partner states at this time she is doing dressing changes and can continue this if possible. I gave them a list of the home health services in the area and she will review. She asks that I return after she has procedure to know if she has any needs. Her PCP is Mary Oquendo at [facility]. CM will continue to follow and will assist as needed with dc plans/needs. DCP REVIEW SUMMARY ANTICIPATED D/C DATE: EXPECTED LOS : CASE STATUS: DCP Initiated INITIAL REVIEW: 11/16/2020 INITIAL REVIEWER: Avelina Betancourt FINAL DISCHARGE DISPOSITION: : FINAL REVIEWER: FINAL REVIEW DATE: DCP Focus Questions & Answers DCP Evaluation QUESTION: ANSWER Patient and/or caregiver agree upon recommended discharge plan? : Yes Patient's current cognitive status: : *Oriented to person, place, situation, time and present Patient's ability to cope with chronic illness : d. No chronic illness Patient gives permission to discuss discharge plans with: (name, relationship and number) : Kris Roberson - life partner - [phone] Does the patient have the ability to pay for or attain post discharge needs / services? : Yes Functional screen assessment: : Basic needs can adequately be met by self Physical Status: : Independent with ADL's Equipment needed for post hospitalization: : Other Is there a likelihood that the patient will require additional services to return to the preadmission environment? : No Living Arrangements: : Home with Spouse/Significant Other Other Equipment comments: : Unknown at this time Results of this evaluation have been discussed with: : Patient Results of this evaluation have been discussed with: : Significant other Patient with capacity for self-care or can be cared for in same environment as prior to hospitalization? : Yes Baseline cognitive status: : *Oriented to person, place, situation, time and present Medication Management: : Patient states can afford medications Planned post hospital services available for patient? : Yes Does Patient have transportation to get home and to follow-up medical appointments when discharged from the hospital? : Yes Would patient like to participate in any Care Coordination programs (if applicable): : Not applicable Equipment in use: : None Abuse/Neglect: : None Resources / Services in place: : None DCP Re-evaluation QUESTION: ANSWER Would patient like to participate in any Care Coordination programs (if applicable): : Not applicable PROVIDER NETWORKING REVIEW DATE: 11/18/2020 SERVICE TYPE: Home Health Care REVIEWER: Mary Byers PATIENT: KRIS ROBERSON ENCOUNTER: [id number] MEDICAL RECORD#: [id number] ADMISSION DATE: 11/15/2020 DISCHARGE DATE: ATTENDING MD: MICHAELLE: AGE: 35 MARITAL STATUS: S DC PLAN ID: [id number] FACILITY: [facility] PRINTED ON: 11/18/20 14:41 CT All edits/amendments must be made on the electronic document DICTATION DATE: 11/18/201440 PICK UP MAN: ORQUIDEA 11/18/201440 RPT#: [id number] DC DATE: STATUS: ADM IN [facility] [address] [place] [address] END OF REPORT
[2020-11-18 17:19] VITALS: BP 128/74
[2020-11-18] MEDS ORDERED: ULTRAM50 MG PO (17:48)
[2020-11-18] MEDS ORDERED: IBUPROFEN800 MG PO (17:49)
[2020-11-18] MEDS ORDERED: CLEOCIN HCL75 MG PO (17:50)
[2020-11-18] MEDS ORDERED: CLINDAMYCIN HC300 MG PO (17:51)
--- NOTE | 2020-11-18 18:48 | NUR ---
PATIENT RECIEVED DC INSTRUCTIONS. VERBALIZED UNDERSTANDING. NO QUESTIONS AT THIS TIME. PRESCRIPTIONS GIVEN TO PATIENT. EXPLAINED HOME HEALTH WILL BE TO SEE HER TOMORROW AND THAT SATURDAY SHE SHOULD RETURN TO ER FOR MEDICAL EQUIPMENT SALES PHYSICIAN AUTO BODY CUSTOMIZER TO CHANGE DRESSING. PATIENT RECIEVED PAIN PILL BEFORE DC. ESCORTED OUT OF HOSPITAL VIA WC WITH PERSONAL BELONGINGS AND SUPPLIES TO PRIVATE VEHICLE.
--- NOTE | 2020-11-20 13:46 | MORECARE ---
CASE MANAGEMENT DISCHARGE SUMMARY PATIENT: KRIS ROBERSON UNIT: [id number] ADM DATE: 11/15/20 AGE: 35 : 81 SEX: F ROOM/BED: D.2226 AUTHOR: MURALI,DOC PHYSICIAN: REFERRING PHYSICIAN: FUAD MAHAN DO DATE OF SERVICE: 11/20/20 Case Management Discharge Planning Summary COMMENTS ENTERED DATE: 11/18/20 14:33 CT COMMENT TYPE: Discharge Planning REVIEWER: Mary Byers CM met with patient at bedside after obtaining verbal consent. CM discussed availability / needs of home health, REHAB and medical equipment. Patient will need home health for dressing changes and wound care. Choice letter signed for [facility], referral faxed to them. Waiting call back to see if they can start care tomorrow. Home health usually does not do daily dressing changes, patient may need to go to clinic on days home health can not change dressing. Patient plans to dc to home today, friend at bedside. CM to follow and assist as needed. ENTERED DATE: 11/16/20 14:48 CT COMMENT TYPE: Discharge Planning REVIEWER: Avelina Betancourt DC PLAN: Home with Life partner ANTICIPATED DC NEEDS: May need home health if extensive dressing change or wound vac CM met with patient to complete initial dc planning assessment. CM educated patient on the CM role and verbal consent given by patient to complete assessment. CM verified patient's address, phone number, and emergency contact phone numbers. Patient lives at home with her life partner, Kris Roberson (same first and last name as patient). At discharge patient plans to return and feels this is a safe discharge. CM discussed availability of home health, rehab services, and medical equipment. Patient denied known discharge needs at this time. Transportation provider at discharge will be her life partner. I did explain to them both that if she has surgery and she has an extensive dressing change or drains or a wound vac that she may need home health. Her partner states at this time she is doing dressing changes and can continue this if possible. I gave them a list of the home health services in the area and she will review. She asks that I return after she has procedure to know if she has any needs. Her PCP is Mary Oquendo at [facility]. CM will continue to follow and will assist as needed with dc plans/needs. DCP REVIEW SUMMARY ANTICIPATED D/C DATE: EXPECTED LOS : CASE STATUS: DCP Initiated INITIAL REVIEW: 11/16/2020 INITIAL REVIEWER: Avelina Betancourt FINAL DISCHARGE DISPOSITION: : FINAL REVIEWER: FINAL REVIEW DATE: DCP Focus Questions & Answers DCP Evaluation QUESTION: ANSWER Patient gives permission to discuss discharge plans with: (name, relationship and number) : Kris Roberson - life partner - [phone] Patient's ability to cope with chronic illness : d. No chronic illness Patient's current cognitive status: : *Oriented to person, place, situation, time and present Patient and/or caregiver agree upon recommended discharge plan? : Yes Physical Status: : Independent with ADL's Functional screen assessment: : Basic needs can adequately be met by self Does the patient have the ability to pay for or attain post discharge needs / services? : Yes Living Arrangements: : Home with Spouse/Significant Other Is there a likelihood that the patient will require additional services to return to the preadmission environment? : No Equipment needed for post hospitalization: : Other Baseline cognitive status: : *Oriented to person, place, situation, time and present Patient with capacity for self-care or can be cared for in same environment as prior to hospitalization? : Yes Results of this evaluation have been discussed with: : Patient Results of this evaluation have been discussed with: : Significant other Other Equipment comments: : Unknown at this time Medication Management: : Patient states can afford medications Planned post hospital services available for patient? : Yes Does Patient have transportation to get home and to follow-up medical appointments when discharged from the hospital? : Yes Would patient like to participate in any Care Coordination programs (if applicable): : Not applicable Equipment in use: : None Abuse/Neglect: : None Resources / Services in place: : None [facility] Re-evaluation QUESTION: ANSWER Would patient like to participate in any Care Coordination programs (if applicable): : Not applicable PROVIDER NETWORKING REVIEW DATE: 11/18/2020 SERVICE TYPE: Home Health Care REVIEWER: Mary Byers PATIENT: KRIS ROBERSON ENCOUNTER: [id number] MEDICAL RECORD#: [id number] ADMISSION DATE: 11/15/2020 DISCHARGE DATE: 11/18/2020 ATTENDING MD: MICHAELLE: AGE: 35 MARITAL STATUS: S DC PLAN ID: [id number] FACILITY: [facility] PRINTED ON: 11/20/20 13:45 CT All edits/amendments must be made on the electronic document DICTATION DATE: 11/20/20 134 DENTAL SERVICE CHIEF: ORQUIDEA 11/20/20 1345 RPT#: [id number] DC DATE:11/18/20 STATUS: DIS IN [facility] [address] [place] [address] END OF REPORT
--- NOTE | 2020-11-21 11:33 | MORECARE ---
CASE MANAGEMENT DISCHARGE SUMMARY PATIENT: KRIS ROBERSON UNIT: [id number] ADM DATE: 11/15/20 AGE: 35 : 81 SEX: F ROOM/BED: D.2226 AUTHOR: MURALI,DOC PHYSICIAN: REFERRING PHYSICIAN: FUAD MAHAN DO DATE OF SERVICE: 11/21/20 Case Management Discharge Planning Summary COMMENTS ENTERED DATE: 11/18/20 14:33 CT COMMENT TYPE: Discharge Planning REVIEWER: Mary Byers CM met with patient at bedside after obtaining verbal consent. CM discussed availability / needs of home health, REHAB and medical equipment. Patient will need home health for dressing changes and wound care. Choice letter signed for [facility] home health, referral faxed to them. Waiting call back to see if they can start care tomorrow. Home health usually does not do daily dressing changes, patient may need to go to clinic on days home health can not change dressing. Patient plans to dc to home today, friend at bedside. CM to follow and assist as needed. ENTERED DATE: 11/16/20 14:48 CT COMMENT TYPE: Discharge Planning REVIEWER: Avelina Betancourt DC PLAN: Home with Life partner ANTICIPATED DC NEEDS: May need home health if extensive dressing change or wound vac CM met with patient to complete initial dc planning assessment. CM educated patient on the CM role and verbal consent given by patient to complete assessment. CM verified patient's address, phone number, and emergency contact phone numbers. Patient lives at home with her life partner, Kris Roberson (same first and last name as patient). At discharge patient plans to return and feels this is a safe discharge. CM discussed availability of home health, rehab services, and medical equipment. Patient denied known discharge needs at this time. Transportation provider at discharge will be her life partner. I did explain to them both that if she has surgery and she has an extensive dressing change or drains or a wound vac that she may need home health. Her partner states at this time she is doing dressing changes and can continue this if possible. I gave them a list of the home health services in the area and she will review. She asks that I return after she has procedure to know if she has any needs. Her PCP is Mary Oquendo at [facility]. CM will continue to follow and will assist as needed with dc plans/needs. DCP REVIEW SUMMARY ANTICIPATED D/C DATE: EXPECTED LOS : CASE STATUS: DCP Initiated INITIAL REVIEW: 11/16/2020 INITIAL REVIEWER: Avelina Betancourt FINAL DISCHARGE DISPOSITION: : FINAL REVIEWER: FINAL REVIEW DATE: DCP Focus Questions & Answers DCP Evaluation QUESTION: ANSWER Patient and/or caregiver agree upon recommended discharge plan? : Yes Patient's current cognitive status: : *Oriented to person, place, situation, time and present Patient's ability to cope with chronic illness : d. No chronic illness Patient gives permission to discuss discharge plans with: (name, relationship and number) : Kris Roberson - life partner - [phone] Does the patient have the ability to pay for or attain post discharge needs / services? : Yes Functional screen assessment: : Basic needs can adequately be met by self Physical Status: : Independent with ADL's Equipment needed for post hospitalization: : Other Is there a likelihood that the patient will require additional services to return to the preadmission environment? : No Living Arrangements: : Home with Spouse/Significant Other Other Equipment comments: : Unknown at this time Results of this evaluation have been discussed with: : Significant other Results of this evaluation have been discussed with: : Patient Patient with capacity for self-care or can be cared for in same environment as prior to hospitalization? : Yes Baseline cognitive status: : *Oriented to person, place, situation, time and present Medication Management: : Patient states can afford medications Planned post hospital services available for patient? : Yes Does Patient have transportation to get home and to follow-up medical appointments when discharged from the hospital? : Yes Would patient like to participate in any Care Coordination programs (if applicable): : Not applicable Equipment in use: : None Abuse/Neglect: : None Resources / Services in place: : None DCP Re-evaluation QUESTION: ANSWER Would patient like to participate in any Care Coordination programs (if applicable): : Not applicable PROVIDER NETWORKING REVIEW DATE: 11/18/2020 SERVICE TYPE: Home Health Care REVIEWER: Mary Byers PATIENT: KRIS ROBERSON ENCOUNTER: [id number] MEDICAL RECORD#: [id number] ADMISSION DATE: 11/15/2020 DISCHARGE DATE: 11/18/2020 ATTENDING MD: MICHAELLE: AGE: 35 MARITAL STATUS: S DC PLAN ID: [id number] FACILITY: [facility] PRINTED ON: 11/21/20 11:32 CT All edits/amendments must be made on the electronic document DICTATION DATE: 11/21/201131 EDGE DRUMMER: ORQUIDEA 11/21/20 113 RPT#: [id number] DC DATE:11/18/20 STATUS: DIS IN [facility] [address] [place] [address] END OF REPORT
== END 2020-11-18 18:50 | disposition home health service (06) | DRG 920 ==
LOC: D.LD 14:07 → D.MS 14:07
PROVIDERS: Surgery; ADMIT Obstetrics & Gynecology; ATTEND Obstetrics & Gynecology
DX: T81.31XA Disruption of external operation (surgical) wound, not elsewhere classified, initial encounter (principal); T81.41XA Infection following a procedure, superficial incisional surgical site, initial encounter; Y83.9 Surgical procedure, unspecified as the cause of abnormal reaction of the patient, or of later complication, without mention of misadventure at the time of the procedure; J44.9 Chronic obstructive pulmonary disease, unspecified; F31.9 Bipolar disorder, unspecified; Z87.891 Personal history of nicotine dependence